=== PATIENT | female | born 1995 | race Caucasian/White ===

== ENCOUNTER 2017-02-24 07:41 | Emergency (ER) | payer OTHER ==
[2017-02-24 08:23] LABS: BASOPHIL 0.4 % (0-2); EOSINOPHIL 1.2 % (0-5); HCT 40.6 % (37.0-47.0); HGB 13.9 g/dl (12.5-16.0); LYMPHOCYTE 28.9 % (15-48); MCH 31.4 pg (25.0-31.0); MCHC 34.2 g/dL (32.0-36.0); MCV 91.6 fL (78.0-100.0); MONOCYTE 9.2 % (0-12); MPV 9.8 fL (6.0-9.5); NEUTROPHIL 60.3 % (41-80); PLT 207 K/uL (150-400); RBC 4.43 M/uL (4.20-5.40); RDW 12.8 % (11.5-14.0); WBC 5.1 K/uL (4.0-10.5)
[2017-02-24 08:43] LABS: CREATININE 0.7 mg/dL (0.5-1.0)
[2017-02-24 09:39] LABS: BILIRUBIN NEGATIVE (NEGATIVE); BLOOD NEGATIVE Ery/uL (NEGATIVE); CLARITY CLEAR (CLEAR); COLOR YELLOW (YELLOW); GLUCOSE (U) NORMAL (NORMAL); KETONE (U) NEGATIVE (NEGATIVE); LEUKOCYTES NEGATIVE Leu/uL (NEGATIVE); NITRITE NEGATIVE (NEGATIVE); PROTEIN NEGATIVE (NEGATIVE); UROBILINOGEN 0.2 mg/dL (0.2-1.0); pH 6.5 (5.0-9.0)
== END 2017-02-24 10:20 | disposition home or self-care (01) ==
LOC: FER 07:41
PROVIDERS: Internal Medicine
DX: K29.00 Acute gastritis without bleeding (principal)
CPT/HCPCS: 36415; 80048; 81003; 83690; 85025; J2405

== ENCOUNTER 2017-02-26 07:11 | Emergency (ER) | payer OTHER ==
[2017-02-26 07:55] LABS: BASOPHIL 0.4 % (0-2); EOSINOPHIL 0.5 % (0-5); HCT 41.2 % (37.0-47.0); HGB 13.9 g/dl (12.5-16.0); LYMPHOCYTE 25.5 % (15-48); MCH 31.1 pg (25.0-31.0); MCHC 33.7 g/dL (32.0-36.0); MCV 92.2 fL (78.0-100.0); MPV 9.8 fL (6.0-9.5); NEUTROPHIL 66.6 % (41-80); PLT 225 K/uL (150-400); RBC 4.47 M/uL (4.20-5.40); RDW 12.6 % (11.5-14.0); WBC 5.7 K/uL (4.0-10.5)
[2017-02-26 08:15] LABS: ALBUMIN 4.7 g/dL (3.5-5.0); BILIRUBIN - TOTAL 0.3 mg/dL (0.1-1.0); CREATININE 0.7 mg/dL (0.5-1.0); GLOBULIN (CALCULATION) 2.5 g/dL (2.2-4.2); POTASSIUM 3.7 mmol/L (3.5-5.1); TOTAL PROTEIN 7.2 g/dL (6.4-8.3)
== END 2017-02-26 08:59 | disposition home or self-care (01) ==
LOC: FER 07:11
PROVIDERS: Internal Medicine
DX: K29.70 Gastritis, unspecified, without bleeding (principal); N94.6 Dysmenorrhea, unspecified
CPT/HCPCS: 36415; 80053; 83690; 85025; J2405

== ENCOUNTER 2017-03-29 05:36 | Emergency (ER) | payer OTHER | END 2017-03-29 06:49 | disposition home or self-care (01) | LOC: FER 05:36 | DX: K29.70 Gastritis, unspecified, without bleeding (principal); N94.6 Dysmenorrhea, unspecified; F17.210 Nicotine dependence, cigarettes, uncomplicated | CPT/HCPCS: J1885; J2405 ==